=== PATIENT | male | born 1995 | race Two or more races ===

== ENCOUNTER 2020-08-05 10:19 | Emergency (ER) | payer BC, OTHER ==
[~2020-08-05] VITALS: Ht 175.3 cm; Wt 104.3 kg
[2020-08-05 10:20] VITALS: BP 136/73
[2020-08-05] MEDS ORDERED: traMADol HCL 50 MG TAB PO ONE (12:00)
== END 2020-08-05 13:11 | disposition left against medical advice (07) ==
LOC: ER 10:19
DX: S02.32XA Fracture of orbital floor, left side, initial encounter for closed fracture (principal); S02.2XXA Fracture of nasal bones, initial encounter for closed fracture; Y08.89XA Assault by other specified means, initial encounter; Y93.89 Activity, other specified; Y92.89 Other specified places as the place of occurrence of the external cause; Y99.8 Other external cause status
CPT/HCPCS: 70450; 70486